=== PATIENT | male | born 1965 | race Two or more races ===

== ENCOUNTER 2016-10-06 11:41 | Emergency (ER) | payer MEDICAID, SELFPAY ==
[~2016-10-06] VITALS: Ht 167.6 cm; Wt 88.3 kg
[2016-10-06 11:49] VITALS: BP 142/86
[2016-10-06] MEDS ORDERED: IBUPROFEN 200 MG TABLET ONE (12:56)
[2016-10-06] MEDS ORDERED: IBUPROFEN 200 MG TABLET PO ONE (13:00)
== END 2016-10-06 14:10 | disposition home or self-care (01) ==
LOC: ED 14:04
DX: M17.11 Unilateral primary osteoarthritis, right knee (principal); M25.461 Effusion, right knee; W17.89XA Other fall from one level to another, initial encounter; Y93.01 Activity, walking, marching and hiking; Y92.89 Other specified places as the place of occurrence of the external cause; Y99.8 Other external cause status
CPT/HCPCS: 99284

== ENCOUNTER → 2017-02-23 | Outpatient (CLI) | payer MEDICAID | END | disposition home or self-care (01) | LOC: RAD 14:01 | PROVIDERS: ATTEND Orthopaedic Surgery | DX: M12.88 Other specific arthropathies, not elsewhere classified, other specified site (principal) | CPT/HCPCS: 72110 ==

== ENCOUNTER → 2017-03-10 | Outpatient (CLI) | payer MEDICAID | END | disposition home or self-care (01) | LOC: CFH 15:44 | PROVIDERS: ATTEND Physician Assistant Surgical | DX: M47.896 Other spondylosis, lumbar region (principal) | CPT/HCPCS: 72148 ==

== ENCOUNTER 2018-05-28 10:40 | Outpatient (CLI) | payer MEDICAID | END 2018-05-28 23:59 | disposition home or self-care (01) | LOC: RAD 10:40 | PROVIDERS: ATTEND Physician Assistant | DX: M79.661 Pain in right lower leg (principal) ==